=== PATIENT | female | born 1965 | race Caucasian/White ===

== ENCOUNTER → 2016-05-04 | Outpatient (CLI) | payer BC ==
[~2016-05-04] MED LIST: ALBUAER3 INH; ALLE10TA PO; AMBI10TA PO; CENTTAB9 PO; ESCI20TA PO; FAMO20TA2 PO; HYDR12.57 PO; LORTA5 PO; SULF1TAB47 PO; TRAZ150T75 PO
--- NOTE | 2016-05-05 18:48 | EKG ---
Date Performed: 05/04/2016 Time Performed: 13:05:42 PTAGE: 51 years EKG: Sinus rhythm NORMAL ECG NO PREVIOUS TRACING DOCTOR: Neftali Whitaker Interpretating Date/Time 05/05/2016 18:42:36
== END ==
LOC: CPRE 12:48
PROVIDERS: ATTEND Obstetrics & Gynecology
DX: Z01.810 Encounter for preprocedural cardiovascular examination (principal); N95.0 Postmenopausal bleeding
CPT/HCPCS: 93005

== ENCOUNTER → 2016-05-06 | Day surgery (SDC) | payer BC ==
--- NOTE | 2016-05-05 21:37 | MH ---
cc: ANDREE RAM DATE OF ADMISSION 05/06/2016 DATE OF 1965 ADMISSION DIAGNOSIS Postmenopausal bleeding. HISTORY OF PRESENT ILLNESS The patient is a 51-year-old white female para 3-0-1-3 with intermittent erratic bleeding over the last two to three years. Her last period was probably 2011. She was referred by Dr. Rodríguez Ospina on 03/25/2016. Her Pap smear was normal. Her labs on 04/09/2016 showed FSH of 120 consistent with menopause. Her pelvic ultrasound from 04/19/2016 revealed a uterus measuring 4.3 cm in length. Endometrium 2 mm. Right ovary was normal. Left could not be seen. There appeared to be some calcification up in the endometrium. She is now admitted for surgical evaluation. PAST MEDICAL HISTORY Previous surgery: Right upper extremity fracture and repair age 11. MEDICATIONS 1. Hydrochlorothiazide. 2. Ambien. 3. ProAir. ALLERGIES NONE. TRANSFUSION None. OBSTETRICAL HISTORY Three vaginal deliveries. One miscarriage. SOCIAL HISTORY Self employed. . Alcohol occasional. Cigarettes one-half to three-quarter pack a day for 30 years. Drugs none. FAMILY HISTORY Noncontributory. PHYSICAL EXAMINATION GENERAL: This is a well-nourished, well-developed white female. VITAL SIGNS: Stable. HEENT: Examination is normal. CHEST: Clear. HEART: Regular rate. BREASTS: Symmetrical. ABDOMEN: Benign. PELVIC: Normal external genitalia and Bartholin's, urethral, Brundidge's. Vagina is normal. Cervix is normal. Uterus is normal size, shape, anterior. No adnexal masses. ASSESSMENT As above. PLAN She is now admitted for outpatient hysteroscopy, D&C. While in the office I explained the procedures, the risks, benefits and complications and possible need for additional surgery pending findings. The patient would like to proceed. MD JOANA Kramer/MICAH /9:05 PM /9:25 PM
[~2016-05-06] VITALS: Ht 160 cm; Wt 67.1 kg
[~2016-05-06] MED LIST changes: +*morphine SULFATE 8 MG/ML PERIprocedure ONLY ONE; +ACETAMINOPHEN 1000 MG/100 ML VIAL IV SCH; -CENTTAB9 PO; +DEXAMETHASONE SOD PHOS 4 MG/ML VIAL ONE; +FAMOTIDINE 20 MG/2 ML VIAL ONE; +INSULIN HUMAN REGULAR 1,000 UNITS/10 ML VIAL SQ PRN; +KETOROLAC TROMETHAMINE 60 MG/2 ML (IM) VIAL IM ONE; +LACTATED RINGER'S 1000 ML IV SCH; -LORTA5 PO; +METOCLOPRAMIDE HCL 10 MG/2 ML VIAL IV PRN; +METOPROLOL TARTRATE 25 MG TAB PO PRN; +MIDAZOLAM HCL 2 MG/2 ML VIAL ONE; +PROPOFOL 200 MG/20 ML AMP IV ONE; +SODIUM CHLORID 0.9% 500 ML IV SCH; -SULF1TAB47 PO; +ceFAZolin 1,000 MG/NS 100 ML IV SCH; +fentaNYL CITRATE 250 MCG/5 ML AMP ONE
[2016-05-06 06:12] VITALS: BP 126/98; PULSE 98; RESP 20; TEMP 97.9; O2SAT 97
[2016-05-06 10:14] VITALS: BP 117/79; PULSE 70; RESP 16; TEMP 97.8; O2SAT 95
--- NOTE | 2016-05-10 11:44 | MP ---
cc: ANDREE RAM DATE OF SURGERY 05/06/2016 PREOPERATIVE DIAGNOSIS Postmenopausal bleeding, uterine fibroids. POSTOPERATIVE DIAGNOSIS Postmenopausal bleeding, uterine fibroids. PROCEDURE Hysteroscopy D&C. ANESTHESIA General LMA ESTIMATED BLOOD LOSS 20 mL FLUIDS Half liter crystalloid. OBJECTIVE FINDINGS Following the induction of adequate general LMA anesthesia, the patient was prepped and draped supine on the operating table in the dorsal lithotomy position in the usual sterile fashion with the bladder was drained via in and out catheterization. Examination under anesthesia revealed a normal sized shape and uterus, no adnexal masses. A heavy weighted speculum was placed in the posterior lip of the vagina. The anterior lip of the cervix was grasped with a single-tooth tenaculum. The cervix and uterus sounded to 6 cm. The cervix was dilated to a #16 Hanks dilator. The hysteroscope was passed revealing an atrophic endometrium and endocervix. Scope was now withdrawn. Endocervix serrated curette, endometrial with curette, polyp forceps for debris. All instruments were removed. All counts correct. The patient taken out of [facility]. She was awake and taken to recovery room in good condition. MD JOANA Kramer/ /8:03 AM /10:32 AM MTDD
== END | disposition home or self-care (01) ==
LOC: HSDC 05:26
PROVIDERS: ATTEND Obstetrics & Gynecology
DX: D25.9 Leiomyoma of uterus, unspecified (principal); N95.0 Postmenopausal bleeding
CPT/HCPCS: 00952; 58558; 88305; J0131; J0690; J1100; J1885; J2250; J2270; J3010; J7120